=== PATIENT | female | born 1990 | race American Indian/Alaskan Native ===

== ENCOUNTER 2018-10-01 09:48 | Emergency (ER) | payer OTHER ==
[2018-10-01] MEDS ORDERED: NACL 0.9% 1000 ML 1,000 ML IV ONE (09:52)
[2018-10-01] MEDS ORDERED: ZOFRAN IV ONE (09:54)
[2018-10-01 09:55] VITALS: BP 104/32
[2018-10-01 10:21] LABS: Basophils % (Auto) 0.6 % (0.0-1.8); Eosinophils # (Auto) 0.2 K/mm3 (0.0-0.4); Hematocrit 40.5 % (30.3-42.9); Lymphocytes # (Auto) 1.7 K/mm3 (1.2-5.4); Lymphocytes % (Auto) 38.2 % (13.4-35.0); Mean Corpuscular HGB Conc 35 % (30-34); Mean Corpuscular Volume 89 fl (79-97); Monocytes # (Auto) 0.3 K/mm3 (0.0-0.8); Monocytes % (Auto) 7.6 % (0.0-7.3); Platelet Count 269 K/mm3 (140-440); Red Blood Count 4.57 M/mm3 (3.65-5.03); Red Cell Distribution Width 13.5 % (13.2-15.2)
[2018-10-01 10:43] LABS: Alanine Aminotransferase 8 units/L (7-56); Albumin 4.1 g/dL (3.9-5); BUN/Creatinine Ratio 14; Blood Urea Nitrogen 7 mg/dL (7-17); Calcium 8.6 mg/dL (8.4-10.2); Hemolysis Index 47
--- NOTE | 2018-10-01 10:58 | Emergency Department Report ---
ED Abdominal Pain HPI - General Chief Complaint: Abdominal Pain Stated Complaint: NAUSEA/VOMIT Time Seen by Provider: 10/01/18 10:01 Source: patient Mode of arrival: Ambulatory Limitations: No Limitations - History of Present Illness Initial Comments: This is a 27-year-old healthy female with prior medical history presents ED complaining of 2 days of vomiting and diarrhea and generalized to right sided abdominal pain. Patient states abdominal pain is aching and localized to the right lower quadrant. Patient also states that she has not been able to hold any food down and vomiting for the past day. She was seen in urgent care last night and was told to follow up with the ER to rule out appendicitis. She presents here today to be evaluated. She denies chest pain, shortness of breath, dizziness, headache MD Complaint: abdominal pain Location: RLQ Radiation: none Migration to: no migration Severity: moderate Severity scale (0 -10): 8 Quality: cramping, aching Consistency: constant Worsens With: eating, vomiting Associated Symptoms: nausea, vomiting, diarrhea. denies: fever, chills, const ipation - Related Data Previous Rx's Medication Instructions Recorded Last Taken Type Ondansetron [Zofran ODT TAB] 8 mg PO Q8HR #40 tab.rapdis 10/01/18 Unknown Rx Allergies Allergy/AdvReac Type Severity Reaction Status Date / Time No Known Allergies Allergy Verified 10/01/18 09:51 ED Review of Systems ROS: Stated complaint: NAUSEA/VOMIT Other details as noted in HPI Comment: All other systems reviewed and negative ED Past Medical Hx - Past Medical History Previous Medical History?: No - Surgical History Past Surgical History?: No - Social History Smoking Status: Never Smoker Substance Use Type: None - Medications Home Medications: Home Medications Medication Instructions Recorded Confirmed Last Taken Type Ondansetron [Zofran ODT TAB] 8 mg PO Q8HR #40 tab.rapdis 10/01/18 Unknown Rx ED Physical Exam - General Limitations: No Limitations General appearance: alert, in no apparent distress - Head Head exam: Present: atraumatic, normocephalic - Eye Eye exam: Present: normal appearance - ENT ENT exam: Present: mucous membranes moist - Neck Neck exam: Present: normal inspection - Respiratory Respiratory exam: Present: normal lung sounds bilaterally. Absent: respiratory distress - Cardiovascular Cardiovascular Exam: Present: regular rate, normal rhythm. Absent: systolic murmur, diastolic murmur, rubs, gallop - GI/Abdominal GI/Abdominal exam: Present: soft, tenderness (right lower quadrant), normal bowel sounds. Absent: distended, guarding - Expanded GI/Abdominal Exam Expanded GI/Abdominal exam: Absent: psoas sign - Extremities Exam Extremities exam: Present: normal inspection, full ROM - Back Exam Back exam: Present: normal inspection, full ROM. Absent: CVA tenderness (R), CVA tenderness (L) - Neurological Exam Neurological exam: Present: alert, oriented X3, normal gait - Psychiatric Psychiatric exam: Present: normal affect, normal mood - Skin Skin exam: Present: warm, dry, intact, normal color. Absent: rash ED Course Vital Signs 10/01/18 09:53 Temperature 97.5 F L Pulse Rate 81 Respiratory 16 Rate Blood Pressure 104/32 O2 Sat by Pulse 98 Oximetry ED Medical Decision Making - Lab Data Result diagrams: 10/01/18 10:13 10/01/18 10:13 - Radiology Data Radiology results: report reviewed, image reviewed CT ABDOMEN PELVIS WITHOUT CONTRAST: HISTORY: Right lower quadrant abdominal pain. COMPARISON: none. TECHNIQUE: Helical CT in 1.25mm intervals without IV contrast. Sagittal and coronal reconstructions. FINDINGS: Lung bases: Normal. Liver: Normal. Biliary system: Normal. Pancreas: Normal. Spleen: Normal. Kidneys/ureters/bladder: The kidneys are normal size, contour and position. The right kidney is normal. There are numerous small hyperintense lesions in the left kidney ranging from a few millimeters to 1.5 cm in diameter. Internal density measures approximately 100 Hounsfield units. The etiology of these are unclear. These may represent hemorrhagic cysts. The ureters and bladder are unremarkable. Adrenal glands: Normal. Aorta: Normal. Intestines: Normal. There appears to be residual oral contrast in the colon suggesting recent oral contrast administration. Appendix: Normal. Pelvic viscera: Normal. Ascites: None. Adenopathy: None. Musculoskeletal: Normal. IMPRESSION: No clear explanation for right lower quadrant abdominal pain. Abnormal left kidney. Multiple hyperintense lesions or cysts are identified. Consider consultation with nephrology. Transcribed By: TTR Dictated By: TERESA YANEZ JR, MD Electronically Authenticated By: TERESA YANEZ JR, MD Signed Date/Time: 10/01/18 1143 - Medical Decision Making 27-year-old female presents with gastroenteritis. She had no vomiting or diarrhea in the ENT. CT scan shows no abnormal acute findings. All labs are within normal limits. Patient received 1 L of fluids here and Zofran ODT. Patient reports feeling much better before discharge Discussed the patient follow-up with his programming manager regarding kidney abnormality findings. Patient understands instructions. Discussed follow-up care physician. - Differential Diagnosis appendicitis, gastroenteritis, Critical care attestation.: If time is entered above; I have spent that time in minutes in the direct care of this critically ill patient, excluding procedure time. ED Disposition Clinical Impression: Gastroenteritis Disposition: DC-01 TO HOME OR SELFCARE Is pt being admited?: No Does the pt Need Aspirin: No Condition: Stable Instructions: Gastroenteritis (ED), Acute Nausea and Vomiting (ED), Abdominal Pain (ED) Additional Instructions: Make sure to follow up with the primary care physician as discussed. Take all your medications as you've been prescribed. If you have any worsening symptoms or develop new symptoms please return to ED immediately. Prescriptions: Ondansetron [Zofran ODT TAB] 8 mg PO Q8HR #40 tab.rapdis Referrals: [facility] [Other] - 3-5 Days PEGGY POE MD, PHD [Referring] - 3-5 Days [facility] [Provider Group] - 3-5 Days Forms: Work/School Release Form(ED) Time of Disposition: 12:18
--- NOTE | 2018-10-01 11:47 | Cat Scan Report ---
CT ABDOMEN PELVIS WITHOUT CONTRAST: HISTORY: Right lower quadrant abdominal pain. COMPARISON: none. TECHNIQUE: Helical CT in 1.25mm intervals without IV contrast. Sagittal and coronal reconstructions. FINDINGS: Lung bases: Normal. Liver: Normal. Biliary system: Normal. Pancreas: Normal. Spleen: Normal. Kidneys/ureters/bladder: The kidneys are normal size, contour and position. The right kidney is normal. There are numerous small hyperintense lesions in the left kidney ranging from a few millimeters to 1.5 cm in diameter. Internal density measures approximately 100 Hounsfield units. The etiology of these are unclear. These may represent hemorrhagic cysts. The ureters and bladder are unremarkable. Adrenal glands: Normal. Aorta: Normal. Intestines: Normal. There appears to be residual oral contrast in the colon suggesting recent oral contrast administration. Appendix: Normal. Pelvic viscera: Normal. Ascites: None. Adenopathy: None. Musculoskeletal: Normal. IMPRESSION: No clear explanation for right lower quadrant abdominal pain. Abnormal left kidney. Multiple hyperintense lesions or cysts are identified. Consider consultation with nephrology.
== END 2018-10-01 12:35 | disposition home or self-care (01) ==
LOC: ED 09:48
DX: K52.9 Noninfective gastroenteritis and colitis, unspecified (principal)
CPT/HCPCS: 36415; 74176; 80053; 84703; 85025; 96361; 96374; 99284; J2405; J7030

== ENCOUNTER 2019-11-23 17:44 | Emergency (ER) | payer OTHER ==
[2019-11-23 17:53] VITALS: BP 108/63
[2019-11-23 18:28] LABS: Basophils # (Auto) 0.1 K/mm3 (0.0-0.1); Basophils % (Auto) 0.4 % (0.0-1.8); Eosinophils # (Auto) 0.1 K/mm3 (0.0-0.4); Eosinophils % (Auto) 1.1 % (0.0-4.3); Hematocrit 38.5 % (30.3-42.9); Hemoglobin 13.1 gm/dl (10.1-14.3); Lymphocytes % (Auto) 24.8 % (13.4-35.0); Mean Corpuscular HGB Conc 34 % (30-34); Mean Corpuscular Volume 91 fl (79-97); Monocytes # (Auto) 0.7 K/mm3 (0.0-0.8); Monocytes % (Auto) 5.9 % (0.0-7.3); Platelet Count 284 K/mm3 (140-440); Red Blood Count 4.24 M/mm3 (3.65-5.03); Red Cell Distribution Width 12.8 % (13.2-15.2)
[2019-11-23 18:43] LABS: Alanine Aminotransferase 20 units/L (7-56); Albumin 4.2 g/dL (3.9-5); BUN/Creatinine Ratio 12; Blood Urea Nitrogen 6 mg/dL (7-17); Calcium 9.3 mg/dL (8.4-10.2); Hemolysis Index 6
[2019-11-23 18:59] LABS: Bilirubin,Urine NEG (Negative); Blood,Urine NEG (Negative); Color,Urine Yellow (Yellow); Mucus,Urine FEW /HPF; Protein,Urine <15 mg/dL mg/dL (Negative); Urobilinogen,Urine < 2.0 mg/dL (<2.0)
--- NOTE | 2019-11-23 19:21 | Emergency Department Report ---
ED Female HPI - General Chief complaint: Vaginal Bleeding Stated complaint: VAG BLEEDING/CRAMPING Time Seen by Provider: 11/23/19 18:01 Source: patient Mode of arrival: Ambulatory Limitations: No Limitations - History of Present Illness Initial comments: 29-year-old -[place] female who presents to the emergency room for lower abdominal cramping and vaginal bleeding that started last night. Patient reports that she is approximately 8 weeks . Patient states that she is gone through 7 pads but not soaked them completely. Patient reports that the pain is 8 out of 10. Her last menstrual period was 09/25/2019. She is 1. She is taken nothing for pain. She has no significant past medical history she does take vitamin D and vitamins. Patient denies any allergies to medications. MD Complaint: vaginal bleeding -: Last night Location: suprapubic Radiation: non-radiating Severity scale (0 -10): 8 Quality: cramping Consistency: intermittent Improves with: none Worsens with: none Are you Now?: Yes Last Menstrual Period: 09/25/19 EDC: 07/01/20 Associated Symptoms: vaginal bleeding - Related Data Sexually active: Yes : 1 Previous Rx's Medication Instructions Recorded Last Taken Type Ondansetron [Zofran ODT TAB] 8 mg PO Q8HR #40 tab.rapdis 10/01/18 Unknown Rx Allergies Allergy/AdvReac Type Severity Reaction Status Date / Time No Known Allergies Allergy Verified 10/01/18 09:51 ED Review of Systems ROS: Stated complaint: VAG BLEEDING/CRAMPING Other details as noted in HPI Comment: All other systems reviewed and negative ED Past Medical Hx - Past Medical History Previous Medical History?: No - Surgical History Past Surgical History?: No - Social History Smoking Status: Never Smoker Substance Use Type: None - Medications Home Medications: Home Medications Medication Instructions Recorded Confirmed Last Taken Type Ondansetron [Zofran ODT TAB] 8 mg PO Q8HR #40 tab.rapdis 10/01/18 Unknown Rx ED Physical Exam - General Limitations: No Limitations General appearance: alert, in no apparent distress - Head Head exam: Present: atraumatic, normocephalic - Eye Eye exam: Present: normal appearance - ENT ENT exam: Present: mucous membranes moist - Neck Neck exam: Present: normal inspection - Respiratory Respiratory exam: Present: normal lung sounds bilaterally. Absent: respiratory distress - Cardiovascular Cardiovascular Exam: Present: tachycardia - GI/Abdominal GI/Abdominal exam: Present: soft, tenderness (Suprapubic). Absent: distended - Back Exam Back exam: Present: normal inspection, full ROM - Neurological Exam Neurological exam: Present: alert, oriented X3, normal gait - Psychiatric Psychiatric exam: Present: normal affect, normal mood - Skin Skin exam: Present: warm, dry, intact, normal color. Absent: rash ED Course Vital Signs 11/23/19 17:50 Temperature 98.0 F Pulse Rate 98 H Respiratory 16 Rate Blood Pressure 108/63 O2 Sat by Pulse 99 Oximetry ED Medical Decision Making - Lab Data Result diagrams: 11/23/19 18:09 11/23/19 18:09 Laboratory Tests 11/23/19 11/23/19 11/23/19 18:09 18:09 18:09 WBC 11.9 H RBC 4.24 Hgb 13.1 Hct 38.5 MCV 91 MCH 31 MCHC 34 RDW 12.8 L Plt Count 284 Lymph % (Auto) 24.8 [place] % (Auto) 5.9 Eos % (Auto) 1.1 Baso % (Auto) 0.4 Lymph # 3.0 [place] # 0.7 Eos # 0.1 Baso # 0.1 Seg Neutrophils % 67.8 Seg Neutrophils # 8.1 H Sodium 136 L Potassium 3.7 Chloride 102.3 Carbon Dioxide 20 L Anion Gap 17 BUN 6 L Creatinine 0.5 L Estimated GFR > 60 BUN/Creatinine Ratio 12 Glucose 106 H Calcium 9.3 Total Bilirubin 0.20 AST 16 ALT 20 Alkaline Phosphatase 59 Total Protein 6.8 Albumin 4.2 Albumin/Globulin Ratio 1.6 HCG, Quant 533113 H Urine Color Urine Turbidity Urine pH Ur Specific [place] Urine Protein Urine Glucose (UA) Urine Ketones Urine Blood Urine Nitrite Urine Bilirubin Urine Urobilinogen Ur Leukocyte Esterase Urine WBC (Auto) Urine RBC (Auto) U Epithel Cells (Auto) Urine Mucus Blood Type 11/23/19 11/23/19 18:09 18:49 WBC RBC Hgb Hct MCV MCH MCHC RDW Plt Count Lymph % (Auto) [place] % (Auto) Eos % (Auto) Baso % (Auto) Lymph # [place] # Eos # Baso # Seg Neutrophils % Seg Neutrophils # Sodium Potassium Chloride Carbon Dioxide Anion Gap BUN Creatinine Estimated GFR BUN/Creatinine Ratio Glucose Calcium Total Bilirubin AST ALT Alkaline Phosphatase Total Protein Albumin Albumin/Globulin Ratio HCG, Quant Urine Color Yellow Urine Turbidity Clear Urine pH 8.0 H Ur Specific [place] 1.009 Urine Protein <15 mg/dl Urine Glucose (UA) Neg Urine Ketones Neg Urine Blood Neg Urine Nitrite Neg Urine Bilirubin Neg Urine Urobilinogen < 2.0 Ur Leukocyte Esterase Neg Urine WBC (Auto) 1.0 Urine RBC (Auto) 4.0 U Epithel Cells (Auto) < 1.0 Urine Mucus Few Blood Type O POSITIVE - Radiology Data Radiology results: report reviewed Referring Physician:PUNEET TAYPatient Name:TYREE SORIANOIPatient ID:[id number] of :[id number]:FemaleAccession:[id number] Date:[id number] Status:Finalized Findings [facility] [address] [place] [address] Ultrasound Report Signed Patient: TYREE REAL MR#: [id number] : 1990 Acct:[id number] Age/Sex: 29 / F ADM Date: 11/23/19 Loc: ED Attending Dr: Ordering Physician: PUNEET TAY Date of Service: 11/23/19 Procedure(s): US OB transvaginal Accession Number(s): [id number] cc: PUNEET TAY ULTRASOUND OBSTETRIC INDICATION / CLINICAL INFORMATION: vaginal bleeding 8 weeks . Clinical Gestational Age (GA): 8 weeks 3 days TECHNIQUE: Transabdominal and Transvaginal. COMPARISON: None available. FINDINGS: GESTATIONAL SAC: Well-defined oval shape and intrauterine in location. YOLK SAC: No significant abnormality. EMBRYO/FETUS: No significant abnormality. - [employer]-Rump Length = 1.8 cm = 8 weeks, 2 day(s). - Heart Rate could not be detected ADNEXA: No significant abnormality. FREE FLUID: None. ADDITIONAL FINDINGS: None. IMPRESSION: The finding of an embryo with crown-rump length of 1.8 cm and no detectable heart tones is diagnostic of failure. Signer Name: Eliot Higgins MD Signed: 11/23/2019 9:03 PM Workstation Name: [id number] Transcribed By: ALBERTO Dictated By: Eliot Higgins MD Electronically Authenticated By: Eliot Higgins MD Signed Date/Time: 11/23/192102 DD/ 39 TD/TT: - Medical Decision Making 29-year-old -[place] female who presents to the emergency room for lower abdominal cramping and vaginal bleeding that started last night. Patient reports that she is approximately 8 weeks . Patient states that she is gone through 7 pads but not soaked them completely. Patient reports that the pain is 8 out of 10. Her last menstrual period was 09/25/2019. She is 1 . She is taken nothing for pain. She has no significant past medical history she does take vitamin D and vitamins. Patient denies any allergies to medications. Ultrasound shows demise. No cardiac activity. Patient reports that she has appointment this Friday with her PIE BAKER. Patient was accompanied by her [id number] who is a PA in this ER. Critical care attestation.: If time is entered above; I have spent that time in minutes in the direct care of this critically ill patient, excluding procedure time. ED Disposition Clinical Impression: demise Disposition: - TO HOME OR SELFCARE Is pt being admited?: No Does the pt Need Aspirin: No Condition: Stable Instructions: Threatened Miscarriage (ED) Additional Instructions: Keep your appointment with your PIE BAKER on arrival. Return back to the emergency room with your severe abdominal pain and severe bleeding. Referrals: PRIMARY CARE, [Primary Care Provider] - 3-5 Days [facility] [Provider Group] - 3-5 Days [facility] [Provider Group] - 3-5 Days Forms: Work/School Release Form(ED)
--- NOTE | 2019-11-23 21:07 | Ultrasound Report ---
ULTRASOUND OBSTETRIC INDICATION / CLINICAL INFORMATION: vaginal bleeding 8 weeks . Clinical Gestational Age (GA): 8 weeks 3 days TECHNIQUE: Transabdominal and Transvaginal. COMPARISON: None available. FINDINGS: GESTATIONAL SAC: Well-defined oval shape and intrauterine in location. YOLK SAC: No significant abnormality. EMBRYO/FETUS: No significant abnormality. - [place]-Rump Length = 1.8 cm = 8 weeks, 2 day(s). - Heart Rate could not be detected ADNEXA: No significant abnormality. FREE FLUID: None. ADDITIONAL FINDINGS: None. IMPRESSION: The finding of an embryo with crown-rump length of 1.8 cm and no detectable heart tones is diagnostic of failure. Signer Name: Eliot Higgins MD Signed: 11/23/2019 9:03 PM Workstation Name: [id number]
--- NOTE | 2019-11-23 21:07 | Ultrasound Report ---
ULTRASOUND OBSTETRIC INDICATION / CLINICAL INFORMATION: vaginal bleeding 8 weeks . Clinical Gestational Age (GA): 8 weeks 3 days TECHNIQUE: Transabdominal and Transvaginal. COMPARISON: None available. FINDINGS: GESTATIONAL SAC: Well-defined oval shape and intrauterine in location. YOLK SAC: No significant abnormality. EMBRYO/FETUS: No significant abnormality. - [place]-Rump Length = 1.8 cm = 8 weeks, 2 day(s). - Heart Rate could not be detected ADNEXA: No significant abnormality. FREE FLUID: None. ADDITIONAL FINDINGS: None. IMPRESSION: The finding of an embryo with crown-rump length of 1.8 cm and no detectable heart tones is diagnostic of failure. Signer Name: Eliot Higgins MD Signed: 11/23/2019 9:03 PM Workstation Name: [id number]
== END 2019-11-23 21:47 | disposition home or self-care (01) ==
LOC: ED 17:44
DX: O36.4XX1 Maternal care for intrauterine death, fetus 1 (principal); Z3A.08 8 weeks gestation of pregnancy; Z79.899 Other long term (current) drug therapy
CPT/HCPCS: 36415; 76801; 76817; 80053; 81001; 84702; 85025; 86900; 86901